=== PATIENT | female | born 1955 | race Caucasian/White ===

== ENCOUNTER 2023-03-26 13:01 | Inpatient (IN) | payer MEDICARE ==
[2023-03-26] MEDS ORDERED: Pantoprazole 40 MG Vial IVPUSH ONE (13:32)
[2023-03-26] MEDS ORDERED: Sodium Chloride 0.9% 10 ML Syringe FLUSH PRN ×2 (13:32→14:55)
[2023-03-26] MEDS ORDERED: Octreotide 100 MCG/ML SDV IVPUSH ONE (13:33)
[2023-03-26] MEDS ORDERED: Ondansetron 4 MG/2 ML SDV IVPUSH ONE (13:37)
[2023-03-26 13:40] LABS: BASOPHILS ABSOLUTE AUTO 0.02 K/uL (0.00-0.10); BASOPHILS PERCENT AUTO 0.1 % (0.1-1.3); EOSINOPHILS ABSOLUTE AUTO 0.01 K/uL (0.00-0.40); EOSINOPHILS PERCENT AUTO 0.1 % (0.0-5.4); HEMATOCRIT 19.7 % (34.3-46.0); IMMATURE GRAN ABSOLUTE AUTO 0.32 K/uL (0.00-0.23); IMMATURE GRAN PERCENT AUTO 1.6 % (0.0-0.7); LYMPHOCYTES ABSOLUTE AUTO 1.66 K/uL (0.8-3.3); LYMPHOCYTES PERCENT AUTO 8.4 % (11.4-47.7); MEAN CORPUSCULAR HEMOGLOBIN 32.4 pg (31.6-35.5); MEAN CORPUSCULAR HGB CONC 35.5 g/dL (31.6-35.5); MEAN CORPUSCULAR VOLUME 91.2 fL (81.4-99.0); MONOCYTES ABSOLUTE AUTO 0.76 K/uL (0.20-0.90); MONOCYTES PERCENT AUTO 3.8 % (3.3-12.6); NEUTROPHILS ABSOLUTE AUTO 17.03 K/uL (1.0-7.6); PLATELET COUNT,PLT 424 K/uL (130-375); RED BLOOD CELL COUNT 2.16 M/uL (3.77-5.24); WHITE BLOOD CELL COUNT,WBC 19.8 K/uL (3.2-11.0)
[2023-03-26] MEDS ORDERED: Octreotide 500 MCG in Sodium Chloride 0.9% 497.5 ML IV SCH ×2 (13:45→14:00)
[2023-03-26] MEDS ORDERED: Sodium Chloride 0.9% 500 ML IV SCH (13:45)
[2023-03-26 13:48] LABS: INR 1.1; PROTHROMBIN TIME 11.4 sec (9.2-10.6); PTT,PARTIAL THROMBOPLSTIN TIME 21.9 sec (21.8-27.3)
[2023-03-26 13:52] LABS: A/G RATIO 0.9 (1.2-2.2); ALANINE AMINOTRANSFERASE,ALT 23 U/L (12-78); ALBUMIN 2.8 g/dL (3.4-5.0); ALKALINE PHOSPHATASE 63 U/L (46-116); ANION GAP 20.8 mmol/L (5.0-14.0); ASPARTATE AMNIOTRANSFERASE,AST 18 U/L (15-37); BILIRUBIN TOTAL 0.2 mg/dL (0.2-1.0); BLOOD UREA NITROGEN,BUN 51 mg/dL (7-18); CALCIUM 8.4 mg/dL (8.5-10.1); CARBON DIOXIDE,CO2 16 mmol/L (21-32); CHLORIDE,CL 96 mmol/L (100-108); CREATININE 1.6 mg/dL (0.6-1.0); EST CRCL DRUG DOSING (CG) 27.84 mL/min; ESTIMATED GFR 35 mL/min (>60); GLUCOSE RANDOM 200 mg/dL (74-106); POTASSIUM,K 3.8 mmol/L (3.6-5.2); PROTEIN TOTAL,TP 6.1 g/dL (6.4-8.2); SODIUM,NA 129 mmol/L (140-148)
[2023-03-26 14:28] LABS: CORONAVIRUS COVID-19 NAA NEGATIVE (NEGATIVE); INFLUENZA A NAA NEGATIVE (NEGATIVE); INFLUENZA B NAA NEGATIVE (NEGATIVE); RESPIRATORY SYNCYTIAL VIR NAA NEGATIVE (NEGATIVE)
[2023-03-26] MEDS ORDERED: Sodium Chloride 0.9% 1,000 ML IV SCH ×2 (14:30→14:55)
[2023-03-26] MEDS ORDERED: Pantoprazole 80 MG in Sodium Chloride 0.9% 100 ML IV SCH (14:40)
[2023-03-26] MEDS ORDERED: Acetaminophen 325 MG Tab PO PRN (14:55)
[2023-03-26] MEDS ORDERED: Ondansetron 4 MG/2 ML SDV IV PRN (14:55)
[2023-03-26] MEDS ORDERED: Nicotine 14 MG/24 Hr Patch TRDERM SCH (15:45)
[2023-03-26 18:31] LABS: CALCIUM 7.5 mg/dL (8.5-10.1); EST CRCL DRUG DOSING (CG) 44.54 mL/min; POTASSIUM,K 4.2 mmol/L (3.6-5.2)
[2023-03-26 18:34] LABS: ANION GAP 15.2 mmol/L (5.0-14.0)
[2023-03-26 18:36] LABS: TROPONIN I HIGH SENSITIVITY 313.7 pg/mL (<=60.3)
[2023-03-27] MEDS ORDERED: Octreotide 500 MCG in Sodium Chloride 0.9% 497.5 ML IV SCH (00:05)
[2023-03-27] MEDS ORDERED: Pantoprazole 80 MG in Sodium Chloride 0.9% 100 ML IV SCH (01:00)
[2023-03-27] MEDS ORDERED: atorvaSTATin 20 MG Tab PO SCH (09:00)
== END 2023-03-26 21:10 | DRG 377 ==
LOC: JP.ED 13:01 → JP.ICU 14:28
PROVIDERS: ADMIT Hospitalist; ATTEND Hospitalist
PROC: 30233K1 Transfusion of Nonautologous Frozen Plasma into Peripheral Vein, Percutaneous Approach (ICD-10-PCS; principal; 2023-03-26)
PROC: 30233N1 Transfusion of Nonautologous Red Blood Cells into Peripheral Vein, Percutaneous Approach (ICD-10-PCS; 2023-03-26)
DX: K92.2 Gastrointestinal hemorrhage, unspecified (principal); I21.4 Non-ST elevation (NSTEMI) myocardial infarction; D62 Acute posthemorrhagic anemia; E87.20 Acidosis, unspecified; T39.395A Adverse effect of other nonsteroidal anti-inflammatory drugs [NSAID], initial encounter; E78.00 Pure hypercholesterolemia, unspecified; I10 Essential (primary) hypertension; F17.210 Nicotine dependence, cigarettes, uncomplicated; Z20.822 Contact with and (suspected) exposure to COVID-19; I73.9 Peripheral vascular disease, unspecified; Z11.52 Encounter for screening for COVID-19; Z88.2 Allergy status to sulfonamides; Z87.81 Personal history of (healed) traumatic fracture; Z88.8 Allergy status to other drugs, medicaments and biological substances; Z79.82 Long term (current) use of aspirin; Z79.899 Other long term (current) drug therapy; W19.XXXA Unspecified fall, initial encounter
CPT/HCPCS: 0241U; 36415; 36430; 71045; 80048; 80053; 80307; 82140; 83605; 84145; 84484; 85018; 85025; 85610; 85730; 86140; 86850; 86900; 86901; 86920; 86922; 93005; C9113; J2354-JA; J2405; J3490; J7030; J7040; P9016; P9017

== ENCOUNTER 2023-06-26 08:10 | Day surgery (SDC) | payer MEDICARE ==
[~2023-06-26 08:10] MED LIST: Propofol 200 MG/20 ML SDV ONE; fentaNYL 100 MCG/2 ML SDV ONE
[2023-06-26] MEDS: Lactated Ringers 1,000 ML IV SCH (08:54)
== END 2023-06-26 11:30 | disposition home or self-care (01) ==
LOC: JP.SDS 08:10
PROVIDERS: ATTEND Student in an Organized Health Care Education/Training Program
DX: K29.50 Unspecified chronic gastritis without bleeding (principal); K44.9 Diaphragmatic hernia without obstruction or gangrene; K22.2 Esophageal obstruction; I10 Essential (primary) hypertension; E78.5 Hyperlipidemia, unspecified; I73.9 Peripheral vascular disease, unspecified; F17.200 Nicotine dependence, unspecified, uncomplicated; Z79.82 Long term (current) use of aspirin; Z79.02 Long term (current) use of antithrombotics/antiplatelets; Z79.899 Other long term (current) drug therapy; Z88.2 Allergy status to sulfonamides
CPT/HCPCS: 43239; J2704; J3010; J7120; 88305; 88341; 88342